=== PATIENT | female | born 1935 | race Caucasian/White ===

== ENCOUNTER 2020-09-10 13:26 | Outpatient (RCR) | payer MEDICARE, OTHER, SELFPAY ==
[2020-09-10] MEDS: COVID-19 VACC, MRNA(PFIZER)/PF 30 MCG/0.3 ML SYRINGE IM (16:45)
[2020-10-01] MEDS: COVID-19 VACC, MRNA(PFIZER)/PF 30 MCG/0.3 ML SYRINGE IM (16:35)
== END 2020-12-15 23:59 ==
LOC: IMMUN 13:26
PROVIDERS: PCP Family Medicine; Visit Provider Family Medicine
DX: Z23 Encounter for immunization (principal)
CPT/HCPCS: 0001A; 0002A; 91300